=== PATIENT | female | born 1945 | race Hispanic/Latino ===

== ENCOUNTER → 2022-03-13 | Outpatient (CLI) | payer MEDICARE | LOC: MRI 09:33 | PROVIDERS: ATTEND Emergency Medicine | DX: R51.9 Headache, unspecified (principal) | CPT/HCPCS: 70551 ==

== ENCOUNTER → 2022-03-26 | Outpatient (CLI) | payer MEDICARE | LOC: DX 08:04 | PROVIDERS: ATTEND Emergency Medicine | DX: R13.10 Dysphagia, unspecified (principal); R47.81 Slurred speech; Z20.822 Contact with and (suspected) exposure to COVID-19 | CPT/HCPCS: 0223U; 36415; 74220 ==